=== PATIENT | male | born 1970 | race Caucasian/White ===

== ENCOUNTER 2022-07-22 16:15 | Emergency (ER) | payer OTHER, SELFPAY ==
[2022-07-22] VITALS (24 sets, daily range): BP systolic 110–127; BP diastolic 71–80; PULSE 43–60; RESP 22; TEMP 36.2; O2SAT 93–100; BMI 25.8
--- NOTE | 2022-07-22 16:38 | CRLHL7_ITS ---
For Patients: As a result of the Century Cures Act, medical imaging exams and procedure reports are released immediately into your electronic medical record. You may view this report before your referring provider. If you have questions, please contact your health care provider. CLINICAL HISTORY: Right upper quadrant pain nausea vomiting FINDINGS: The patient`s liver is of normal size and has uniform echogenicity. There is no evidence of ascites. The gallbladder is of normal size and there is no evidence of intraluminal stones or sludge. The gallbladder wall measures 2 mm in thickness. The common bile duct is of normal size and measures mm in diameter at the level of the fabi hepatis. The pancreas is poorly seen. There is no evidence of a stone or hydronephrosis within the right kidney. The right kidney measures 10.8 cm in length. IMPRESSION: Limited unremarkable ultrasound. Dictated by Luanne Blandon MD @ 07/22/2022 5:57:34 PM (Electronically Signed)
--- NOTE | 2022-07-22 16:38 | CRLHL7_ITS ---
For Patients: As a result of the Century Cures Act, medical imaging exams and procedure reports are released immediately into your electronic medical record. You may view this report before your referring provider. If you have questions, please contact your health care provider. INDICATION: Right upper quadrant abdominal pain TECHNIQUE: CT abdomen and pelvis acquired with IV contrast. 85 cc Isovue 370 contrast was administered intravenously. COMPARISON: Right upper quadrant ultrasound earlier same day 07/22/2022 FINDINGS: The visualized portions of the lung bases are clear. The gallbladder is nondistended, however there is dense layering either multiple small stones or sludge at the gallbladder neck. There is similar appearing finding within the distal common bile duct with mild dilatation of the common bile duct measuring up to 0.8 cm. There is mild intrahepatic biliary dilatation. The remainder of liver is unremarkable. The spleen, pancreas and adrenal glands are unremarkable. The kidneys enhance symmetrically without hydronephrosis. There are 2 adjacent nonobstructing stones within the lower pole of the left kidney measuring up to 5 mm. Punctate nonobstructing stone is present in the lower pole of the right kidney. The bladder is partially distended and unremarkable. There are no dilated loops of small bowel to suggest obstruction.The appendix is normal.There is no intraperitoneal free air or fluid. The bones are unremarkable. IMPRESSION: 1. Layering sludge or stones within the nondistended gallbladder. There is also layering sludge or stones within the common bile duct resulting in mild dilatation of the common bile duct measuring up to 8 mm as well as mild intrahepatic biliary dilatation. Recommend correlation with LFTs. 2. Nonobstructing bilateral renal calculi. Dictated by Gill Aragon MD @ 07/22/2022 6:06:06 PM Please note that all CT scans at this facility use dose modulation, iterative reconstruction, and/or weight-based dosing when appropriate to reduce radiation dose to as low as reasonably achievable. Dictated by: Gill Aragon MD @ 07/22/2022 18:07:27 (Electronically Signed)
[2022-07-22] MEDS: ONDANSETRON 2 MG/ML inj 4 MG IVP (16:41)
--- NOTE | 2022-07-22 16:41 | ED_ITS ---
HPI - General Adult General Time Seen by Provider: 16:41 Date Seen: 07/22/22 Chief complaint: Abdominal Pain Stated complaint: Stomach pain, nausea Time Seen by Provider: 07/22/22 16:16 Source: patient Mode of arrival: ambulatory Limitations: physical limitation History of Present Illness HPI narrative: Patient is a pleasant 51 year white male who has 1 day history of significant worsening epigastric and right upper quadrant pain. He has noticed dark urine. He ate a sub at about 11:00 a.m. this morning half of it. He has had some nausea although that is improved he has pain that is really uncomfortable and he can not find a comfortable position. He describes it in his epigastrium and right upper quadrant primarily it radiates through to his back. He has tenderness to touch of his anterior abdomen he denies chest pain breathing problem recent illness. He is generally quite healthy. He is on no home medications has no significant past medical history Related Data Home Medications Medication Instructions Recorded Confirmed No Known Home Medications 07/22/22 07/22/22 Allergies Allergy/AdvReac Type Severity Reaction Status Date / Time No Known Drug Allergies Allergy Verified 07/22/22 16:31 Review of Systems Status of ROS: Reports: 6 or more systems reviewed and unremarkable except as noted in History and below PFSH PFS Social History Smoking Status: Former smoker How often do you have a drink containing alcohol: monthly or less How many standard drinks containing alcohol do you have on a typical day: 1 or 2 AUDIT-C Alcohol total score: 1 Non-prescribed substance use: denies use Exam Narrative: Exam Narrative: Objective: Patient is in moderate distress and discomfort Vital signs unremarkable afebrile Alert orient x3 No scleral icterus Mouth clear Neck is supple Chest is clear pulse regular abdomen shows epigastric tenderness and right upper quadrant tenderness is shows voluntary guarding mild rigidity lower abdominal exam is unremarkable bowel sounds hypoactive throughout extremities are no edema neurologic nonfocal Const: Vital Signs, click to edit/add: Vital Signs - 24 hr 07/22/22 16:28 07/22/22 17:00 07/22/22 16:49 Temperature 97.2 F L Pulse Rate 54 L Pulse Rate [Pulse Oximeter] 53 L Respiratory Rate 22 Blood Pressure Blood Pressure [Ri ght Upper Arm] 110/71 Pulse Oximetry 100 98 99 Oxygen Delivery Me thod Room Air 07/22/22 17:36 07/22/22 17:45 07/22/22 18:00 Temperature Pulse Rate 51 L 45 L 51 L Pulse Rate [Pulse Oximeter] Respiratory Rate Blood Pressure Blood Pressure [Ri ght Upper Arm] Pulse Oximetry 97 99 98 Oxygen Delivery Me thod 07/22/22 18:02 07/22/22 18:15 07/22/22 18:30 Temperature Pulse Rate 53 L 55 L 43 L Pulse Rate [Pulse Oximeter] Respiratory Rate Blood Pressure 126/79 Blood Pressure [Ri ght Upper Arm] Pulse Oximetry 98 98 97 Oxygen Delivery Me thod 07/22/22 18:32 07/22/22 18:45 Temperature Pulse Rate 46 L 57 L Pulse Rate [Pulse Oximeter] Respiratory Rate Blood Pressure 127/79 Blood Pressure [Ri ght Upper Arm] Pulse Oximetry 98 97 Oxygen Delivery Me thod Course Vital Signs Vital signs: Initial Vital Signs Temperature 97.2 F L 07/22/22 16:28 Temperature Source Temporal Artery Scan 07/22/22 16:28 Pulse Rate 53 L 07/22/22 16:28 Pulse Rhythm Regular 07/22/22 16:28 Respiratory Rate 07/22/22 16:28 Blood Pressure 110/71 07/22/22 16:28 Blood Pressure Mean 84 07/22/22 16:28 Blood Pressure Position Semi-Fowlers 07/22/22 16:28 Pulse Oximetry 100 07/22/22 16:28 Oxygen Delivery Method Room Air 07/22/22 16:28 Vital Signs Temperature 97.2 F L 07/22/22 16:28 Pulse Rate 53 L 07/22/22 16:28 Respiratory Rate 07/22/22 16:28 Blood Pressure 110/71 07/22/22 16:28 Pulse Oximetry 100 07/22/22 16:28 Oxygen Delivery Method Room Air 07/22/22 16:28 Temperature 97.2 F L 07/22/22 16:28 Pulse Rate 57 L 07/22/22 18:45 Respiratory Rate 07/22/22 16:28 Blood Pressure 127/79 07/22/22 18:32 Pulse Oximetry 97 07/22/22 18:45 Oxygen Delivery Method Room Air 07/22/22 16:28 Medical Decision Making MDM Narrative Medical decision making narrative: [age] year white male with onset of epigastric and right upper quadrant pain over the last 24 hours radiates to his back. He has noticed some dark urine concern would be for cholecystitis or Colace is lithiasis. Patient will get a CT scan of his abdomen and pelvis to make sure that there is no obstruction or o ther intra-abdomin pathology, get a right upper quadrant ultrasound, will get laboratory studies including amylase LFT CBC Chem profile. Will give 1 L normal saline Zofran 4 mg IV and Dilaudid 1 mg IV. Surgical consult as needed pending lab studies above. Addendum 6:25 p.m.: CT scan of the abdomen per [facility] shows layers layering sludge or stones within the nondistended gallbladder sludge or stones within the common bile duct mild dilatation the common duct at 8 mm. His liver function tests are elevated. His alk-phos however as normal. Will get surgical consultation. Addendum 7:09 p.m.: The recommendation from Dr. Escalona her surgeon was to transfer the patient for ERCP. Have made contact with a [place] [facility] and they are having [facility] call back. The hospitalist will contact us regarding transfer. The patient be given Zosyn IV. [facility] team has kindly accepted the patient in transfer. Will await bed placement and then transfer via ambulance. Lab Data Labs: Lab Results 07/22/22 07/22/22 Range/Units 16:35 16:44 WBC 7.79 (4.50-11.00) K/uL RBC 4.98 (4.30-5.90) m/uL Hgb 15.3 (13.5-17.5) gm/dL Hct 45.5 (37.0-53.0) % MCV 91 (80-100) fL MCH 31 (26-34) pg MCHC 34 (32-36) gm/dL RDW Coeff of Ruben 12.8 (11.5-15.5) % Plt Count 295 (140-440) K/uL Neut % (Auto) 73.6 H (42.0-72.0) % Lymph % (Auto) 14.4 L (20-44) % [place] % (Auto) 10.5 (0.0-11.0) % Eos % (Auto) 1.0 (0.0-7.0) % Baso % (Auto) 0.5 (0.0-3.0) % Neut # (Auto) 5.70 (1.7-7.0) K/uL Lymph # (Auto) 1.10 (0.90-2.90) K/uL [place] # (Auto) 0.80 (0.00-0.90) K/UL Eos # (Auto) 0.08 (0.00-0.50) K/uL Baso # (Auto) 0.04 (0.00-0.30) K/uL Sodium 139 (135-149) mmol/L Potassium 3.9 (3.6-5.1) mmol/L Chloride 107 (96-114) mmol/L Carbon Dioxide 24 (20-32) mmol/L BUN 9 (7-30) mg/dL Creatinine 0.8 (0.5-1.5) mg/dL Estimated Creat Clear 110.47 Estimated GFR 108 ml/min Glucose 117 H (60-115) mg/dL Calcium 9.1 (8.4-10.6) mg/dL Total Bilirubin 4.1 H (0.1-1.5) mg/dL Direct Bilirubin 3.2 H (0.0-0.5) mg/dL AST 743 H (12-35) U/L ALT 975 H (4-50) U/L Alkaline Phosphatase 148 (40-150) U/L C-Reactive Protein 0.9 (0.5-1.0) mg/dL Total Protein 7.0 (6.0-8.3) g/dL Albumin 4.1 (3.3-5.0) g/dL Amylase 65 (18-89) U/L Lipase 92 (23-300) U/L SARS-CoV-2 (PCR) Negative SARS-CoV-2 (Negative) Discharge Plan Discharge Clinical Impression: Abdominal pain, Choledocholithiasis Patient Disposition: Xfer Other Condition: Stable Additional Instructions: Transfer for ERCP and GI assessment. Prescriptions: No Action No Known Home Medications Stand Alone Forms: MyHealth Info Instructions
[2022-07-22] MEDS: 0.9 % SODIUM CHLORIDE 1000 ml 1,000 ML 6000 ML IV (16:42)
[2022-07-22 16:50] LABS: Basophils Absolute Auto 0.04 K/uL (0.00-0.30); Basophils Percent Auto 0.5 % (0.0-3.0); Eosinophils Absolute Auto 0.08 K/uL (0.00-0.50); Hematocrit 45.5 % (37.0-53.0); Hemoglobin* 15.3 gm/dL (13.5-17.5); Lymphocytes Percent Auto 14.4 % (20-44); Mean Corpuscular HGB Conc 34 gm/dL (32-36); Mean Corpuscular Hemoglobin 31 pg (26-34); Mean Corpuscular Volume 91 fL (80-100); Monocytes Percent Auto 10.5 % (0.0-11.0); Neutrophils Percent Auto 73.6 % (42.0-72.0); Platelet Count* 295 K/uL (140-440); RDW Coefficient of Variation % 12.8 % (11.5-15.5); Red Blood Count 4.98 m/uL (4.30-5.90); White Blood Count* 7.79 K/uL (4.50-11.00)
[2022-07-22] MEDS: HYDROmorphone 0.5 mg/0.5 ml inj 1 MG IVP (16:53)
[2022-07-22 16:58] LABS: Slide Review Reflex No
[2022-07-22 17:02] LABS: Albumin* 4.1 g/dL (3.3-5.0)
[2022-07-22 17:03] LABS: Chloride* 107 mmol/L (96-114); Potassium* 3.9 mmol/L (3.6-5.1); Sodium* 139 mmol/L (135-149)
[2022-07-22 17:05] LABS: Alkaline Phosphatase* 148 U/L (40-150); Aspartate Amino Transferase* 743 U/L (12-35); Bilirubin Direct* 3.2 mg/dL (0.0-0.5); Bilirubin Total* 4.1 mg/dL (0.1-1.5); Lipase* 92 U/L (23-300)
[2022-07-22 17:06] LABS: Amylase* 65 U/L (18-89); Creatinine* 0.8 mg/dL (0.5-1.5); Est. Creatinine Clearance* 110.47; Estimated Glomerular Filt Rate 108 ml/min
--- NOTE | 2022-07-22 17:06 | ED.NURSE ---
Pt to imaging
[2022-07-22 17:07] LABS: Blood Urea Nitrogen* 9 mg/dL (7-30); Calcium* 9.1 mg/dL (8.4-10.6); Carbon Dioxide* 24 mmol/L (20-32); Glucose* 117 mg/dL (60-115)
[2022-07-22 17:09] LABS: C Reactive Protein* 0.9 mg/dL (0.5-1.0)
[2022-07-22 17:22] LABS: Alanine Aminotransferase* 975 U/L (4-50)
[2022-07-22] MEDS: PANTOPRAZOLE SODIUM 40 MG INJ IVP (17:38)
[2022-07-22 17:45] LABS: SARS PCR* Negative SARS-CoV-2 (Negative)
[2022-07-22] MEDS: HYDROmorphone 0.5 mg/0.5 ml inj IVP (19:37)
[2022-07-22] MEDS: PIPERACILLIN/TAZOBACTAM 4.5 GM in 0.9 % SODIUM CHLORIDE Mini-bag 100 ML IVPB (19:42)
--- NOTE | 2022-07-22 22:56 | ED.NURSE ---
Patient report given to FRANSISCA Woodruff at [facility]. Patient will be going to bed #5680-0
--- NOTE | 2022-07-22 23:02 | ED.NURSE ---
Patients significant other Susie called at [phone] updated that patient will be transfering to [facility] ~0030.
--- NOTE | 2022-07-23 00:19 | ED.NURSE ---
Patient report given to EMS, patient transfered to [facility] bed [id number]. Patients recieving nurse updated.
[2022-07-23 00:23] VITALS: BP 117/68; PULSE 60; RESP 16; TEMP 36.4
== END 2022-07-23 00:26 | disposition other institution (70) ==
PROVIDERS: Emergency Provider Family Medicine
DX: K80.50 Calculus of bile duct without cholangitis or cholecystitis without obstruction (principal)
CPT/HCPCS: 36415; 74177; 76705; 80048; 80076; 82150; 83690; 85025; 86140; 87635; 94761; 96365; 96375; 96376; 99284; 99285; C9113; J1170; J2405; J2543; J7030; Q9967

== ENCOUNTER 2022-07-23 00:17 | Outpatient (CLI) | payer OTHER, SELFPAY | END 2022-07-23 00:18 | disposition home or self-care (01) | LOC: AMB 07-26 09:41 | PROVIDERS: Visit Provider Family Medicine | DX: R10.9 Unspecified abdominal pain (principal) | CPT/HCPCS: A0425; A0426; A0428 ==